=== PATIENT | female | born 1955 ===

== ENCOUNTER 2021-01-05 04:47 | Emergency (ER) | payer OTHER, MEDICARE ==
--- NOTE | 2021-01-05 05:39 | EDM.PDOC ---
ED HPI GENERAL MEDICAL PROBLEM - General Chief Complaint: Abdominal Pain Stated Complaint: ABD PAIN Time Seen by Provider: 01/05/21 04:55 Source of Information: Reports: Patient History Limitations: Reports: No Limitations - History of Present Illness INITIAL COMMENTS - FREE TEXT/NARRATIVE: Mrs. Garcia is a very pleasant 65-year-old woman who now presents to the ED stating that she developed upper abdominal pain, nausea with dry heaves, dysuria, decreased urine output, a nonproductive cough, pain when she takes a deep breath, and a cough induced by taking a deep breath, and generalized body aches this past 01/03/2021. She then developed dyspnea, anosmia, and ageusia yesterday, 01/04/2021. She states that she also had a fever of 103 degrees yesterday. The patient states that her abdominal pain is felt across her upper abdomen, and is sharp and burning in character. She states that it is constant since its onset, and she has not identified any modifiers. The patient states that she has been taking acetaminophen and ibuprofen to address her symptoms, but states that when she does so, it makes her feel like she is going to pass out. The patient states that she went to the [facility] last night, and was swabbed for RSV and influenza, but does not have to have the results. She states that she was not seen by a provider, and not examined. Here in the ED this morning, the patient is found to be hemodynamically stable, with a slight fever of 100.4 degrees. Her oxygen saturation is 92% on room air. She appears to be somewhat fatigued, although in no acute distress. Prior to Monday, the patient denies having a recent fever, chills, sore throat, ear pain, nasal or sinus congestion, cough, dyspnea, chest pain, palpitations, nausea, vomiting, constipation, diarrhea, abdominal pain, urinary symptoms, recent weight gain or weight loss, recent bloody bowel movements or black bowel movements, recent joint aches, headaches, or rashes. I reviewed the PMHx/PSHx/SocHx, which was reviewed with the patient by the RN. The patient's PCP is LULI Choi. She has not received a COVID vaccination, nor an influenza vaccination this season. Abdomen Pain Score (Numeric/FACES): 10 - Related Data Allergies Allergy/AdvReac Type Severity Reaction Status Date / Time No Known Allergies Allergy Verified 01/05/21 05:07 Home Meds: Home Meds Ondansetron [Zofran ODT] 1 tab PO Q8H PRN #10 tab.dis 01/05/21 [Rx] Potassium Chloride 2 tab PO Q6H #3 tablet.er 01/05/21 [Rx] Past Medical History HEENT History: Reports: Impaired Vision Other HEENT History: uses glasses Respiratory History: Reports: Bronchitis, Recurrent Gastrointestinal History: Reports: Chronic Constipation, Hemorrhoids HEALTHCARE SPECIALIST History: Reports: - Infectious Disease History Infectious Disease History: Reports: Chicken Pox - Past Surgical History HEENT Surgical History: Reports: Oral Surgery Social & Family History - Tobacco Use Tobacco Use Status *Q: Former Tobacco User Used Tobacco, but Quit: Yes Month/Year Tobacco Last Used: 40 years - Caffeine Use Caffeine Use: Reports: None - Recreational Drug Use Recreational Drug Use: No ED ROS GENERAL - Review of Systems Review Of Systems: Comprehensive ROS is negative, except as noted in HPI. ED EXAM, GENERAL - Physical Exam Exam: See Below Exam Limited By: No Limitations General Appearance: Alert, WD/WN, Other (Looks somewhat fatigued) Eye Exam: Bilateral Eye: EOMI, Normal Inspection Ears: Normal External Exam, Hearing Grossly Normal Nose: Normal Inspection Throat/Mouth: Normal Inspection, Normal Lips, Normal Voice, No Airway Compromise Head: Atraumatic, Normocephalic Neck: Normal Inspection, Full Range of Motion Respiratory/Chest: No Respiratory Distress, Lungs Clear, Normal Breath Sounds, No Accessory Muscle Use, Other (Having the patient take a deep breath induced a cough). No: Decreased Breath Sounds, Crackles, Rhonchi, Wheezing, Stridor, Prolonged Expiration Cardiovascular: Normal Peripheral Pulses, Regular Rate, Rhythm, No Edema, No Gallop, No JVD, No Murmur, No Rub Peripheral Pulses: 3+: Radial (L), Radial (R) GI/Abdominal: Normal Bowel Sounds, Soft, No Organomegaly, No Distention, No Abnormal Bruit, No Mass, Tender (To the upper abdomen only, nontender to the lower abdomen, including the suprapubic region) Back Exam: Normal Inspection, Full Range of Motion. No: CVA Tenderness (L), CVA Tenderness (R) Extremities: Normal Inspection, Normal Range of Motion, No Pedal Edema, Normal Capillary Refill Neurological: Alert, Oriented, Normal Cognition, No Motor/Sensory Deficits Psychiatric: Normal Affect Skin Exam: Warm, Dry, Intact, Normal Color, No Rash #1 Interpretation EKG Date: 01/05/21 Time: 05:46 Rhythm: NSR Rate (Beats/Min): 76 [place]: Normal P-Wave: Present QRS: Normal ST-T: Normal QT: Normal Comparison: NA - No Prior EKG Course - Vital Signs Last Recorded V/S: Last Vital Signs Temp 38.0 C 01/05/21 07:35 Pulse 86 01/05/21 07:35 Resp 32 H 01/05/21 07:35 BP 112/71 01/05/21 07:35 Pulse Ox 91 L 01/05/21 07:35 Orthostatic Blood Pressure [ 111/57 Standing] Orthostatic Blood Pressure [ 117/59 Supine] - Orders/Labs/Meds Orders: Active Orders 24 hr Category Date Time Status Orthostatic Vital Signs [RC] STAT Care 01/05/21 05:29 Active Vital Signs [RC] Q15M Care 01/05/21 08:09 Active BLOOD CULTURE [MREF] Stat Lab 01/05/21 05:57 Received BLOOD CULTURE [MREF] Stat Lab 01/05/21 06:05 Received EPINEPHrine [Adrenalin] Med 01/05/21 08:09 Active 0.3 mg IM ASDIRECTED PRN Famotidine [Pepcid] Med 01/05/21 08:09 Active 20 mg IVPUSH ASDIRECTED PRN Sodium Chloride 0.9% [Saline Flush] Med 01/05/21 08:15 Active 30 ml FLUSH ASDIRECTED diphenhydrAMINE [Benadryl] Med 01/05/21 08:09 Active 50 mg IVPUSH ASDIRECTED PRN methylPREDNISolone Sod Succ [Solu-MEDROL] Med 01/05/21 08:09 Active 125 mg IVPUSH ASDIRECTED PRN Blood Culture x2 Reflex Set [OM.PC] Stat Oth 01/05/21 05:30 Ordered Medication Orders Diphenhydramine HCl (Diphenhydramine 50 Mg/Ml Sdv) 50 mg IVPUSH ASDIRECTED PRN PRN Reason: hypersensitivity reaction Epinephrine HCl (Epinephrine 1 Mg/Ml Sdv) 0.3 mg IM ASDIRECTED PRN PRN Reason: hypersensitivity reaction Famotidine (Famotidine 20 Mg/2 Ml Sdv) 20 mg IVPUSH ASDIRECTED PRN PRN Reason: hypersensitivity reaction Methylprednisolone Sodium Succinate (Methylprednisolone Sodium Succinate 125 Mg/2 Ml Sdv) 125 mg IVPUSH ASDIRECTED PRN PRN Reason: hypersensitivity reaction Sodium Chloride (Sodium Chloride 0.9% 10 Ml Syringe) 30 ml FLUSH ASDIRECTED KAUR Labs: Laboratory Tests 01/05/21 01/05/21 01/05/21 Range/Units 05:28 05:46 06:05 WBC 2.33 L* (3.98-10.04) K/mm3 RBC 4.85 (3.98-5.22) M/mm3 Hgb 15.1 (11.2-15.7) gm/dl Hct 43.1 (34.1-44.9) % MCV 88.9 (79.4-94.8) fl MCH 31.1 (25.6-32.2) pg MCHC 35.0 (32.2-35.5) g/dl RDW Std Deviation 39.3 (36.4-46.3) fL Plt Count 114 L (182-369) K/mm3 MPV 10.1 (9.4-12.3) fl Neutrophils % (Manual) 62 H (40-60) % Band Neutrophils % 0 (0-10) % Lymphocytes % (Manual) 27 (20-40) % Atypical Lymphs % 0 % Monocytes % (Manual) 11 H (2-10) % Eosinophils % (Manual) 0 L (0.7-5.8) % Basophils % (Manual) 0 L (0.1-1.2) Platelet Estimate Adequate RBC Morph Comment Normal D-Dimer, Quantitative (0.19-0.50) mg/L Sodium (136-145) mEq/L Potassium (3.5-5.1) mEq/L Chloride (98-107) mEq/L Carbon Dioxide (21-32) mEq/L Anion Gap (5-15) BUN (7-18) mg/dL Creatinine (0.55-1.02) mg/dL Est Cr Clr Drug Dosing mL/min Estimated GFR (MDRD) (>60) mL/min BUN/Creatinine Ratio (14-18) Glucose (70-99) mg/dL Lactic Acid (0.4-2.0) mmol/L Calcium (8.5-10.1) mg/dL Magnesium (1.8-2.4) mg/dL Total Bilirubin (0.2-1.0) mg/dL AST (15-37) U/L ALT (14-59) U/L Alkaline Phosphatase (46-116) U/L Troponin I (0.00-0.056) ng/mL C-Reactive Protein (<1.0) mg/dL NT-Pro-B Natriuret Pep (0-125) pg/mL Total Protein (6.4-8.2) g/dl Albumin (3.4-5.0) g/dl Globulin gm/dL Albumin/Globulin Ratio (1-2) Lipase (73-393) U/L Urine Color Yellow (Yellow) Urine Appearance Clear (Clear) Urine pH 5.5 (5.0-8.0) Ur Specific [place] 1.025 (1.005-1.030) Urine Protein 2+ H (Negative) Urine Glucose (UA) Negative (Negative) Urine Ketones Trace H (Negative) Urine Occult Blood 2+ H (Negative) Urine Nitrite Negative (Negative) Urine Bilirubin Negative (Negative) Urine Urobilinogen 1.0 (0.2-1.0) Ur Leukocyte Esterase Negative (Negative) Urine RBC 5-10 H (0-5) /hpf Urine WBC 0-5 (0-5) /hpf Ur Squamous Epith Cells 0-5 (0-5) /hpf Urine Bacteria Few (FEW) /hpf Urine Mucus Moderate H (FEW) /hpf Influenza Type A RNA Cancelled Influenza Type B RNA Cancelled SARS-CoV-2 RNA (STEVEN) Positive H (NEGATIVE) 01/05/21 01/05/21 01/05/21 Range/Units 06:05 06:05 06:05 WBC (3.98-10.04) K/mm3 RBC (3.98-5.22) M/mm3 Hgb (11.2-15.7) gm/dl Hct (34.1-44.9) % MCV (79.4-94.8) fl MCH (25.6-32.2) pg MCHC (32.2-35.5) g/dl RDW Std Deviation (36.4-46.3) fL Plt Count (182-369) K/mm3 MPV (9.4-12.3) fl Neutrophils % (Manual) (40-60) % Band Neutrophils % (0-10) % Lymphocytes % (Manual) (20-40) % Atypical Lymphs % % Monocytes % (Manual) (2-10) % Eosinophils % (Manual) (0.7-5.8) % Basophils % (Manual) (0.1-1.2) Platelet Estimate RBC Morph Comment D-Dimer, Quantitative 0.82 H (0.19-0.50) mg/L Sodium 136 (136-145) mEq/L Potassium 2.7 L (3.5-5.1) mEq/L Chloride 97 L (98-107) mEq/L Carbon Dioxide 27 (21-32) mEq/L Anion Gap 14.7 (5-15) BUN 13 (7-18) mg/dL Creatinine 0.8 (0.55-1.02) mg/dL Est Cr Clr Drug Dosing 60.54 mL/min Estimated GFR (MDRD) > 60 (>60) mL/min BUN/Creatinine Ratio 16.3 (14-18) Glucose 111 H (70-99) mg/dL Lactic Acid 1.5 (0.4-2.0) mmol/L Calcium 8.3 L (8.5-10.1) mg/dL Magnesium 1.8 (1.8-2.4) mg/dL Total Bilirubin 0.6 (0.2-1.0) mg/dL AST 44 H (15-37) U/L ALT 29 (14-59) U/L Alkaline Phosphatase 51 (46-116) U/L Troponin I < 0.017 (0.00-0.056) ng/mL C-Reactive Protein 2.3 H* (<1.0) mg/dL NT-Pro-B Natriuret Pep (0-125) pg/mL Total Protein 6.4 (6.4-8.2) g/dl Albumin 3.2 L (3.4-5.0) g/dl Globulin 3.2 gm/dL Albumin/Globulin Ratio 1.0 (1-2) Lipase 200 (73-393) U/L Urine Color (Yellow) Urine Appearance (Clear) Urine pH (5.0-8.0) Ur Specific [place] (1.005-1.030) Urine Protein (Negative) Urine Glucose (UA) (Negative) Urine Ketones (Negative) Urine Occult Blood (Negative) Urine Nitrite (Negative) Urine Bilirubin (Negative) Urine Urobilinogen (0.2-1.0) Ur Leukocyte Esterase (Negative) Urine RBC (0-5) /hpf Urine WBC (0-5) /hpf Ur Squamous Epith Cells (0-5) /hpf Urine Bacteria (FEW) /hpf Urine Mucus (FEW) /hpf Influenza Type A RNA Influenza Type B RNA SARS-CoV-2 RNA (STEVEN) (NEGATIVE) 01/05/21 Range/Units 06:05 WBC (3.98-10.04) K/mm3 RBC (3.98-5.22) M/mm3 Hgb (11.2-15.7) gm/dl Hct (34.1-44.9) % MCV (79.4-94.8) fl MCH (25.6-32.2) pg MCHC (32.2-35.5) g/dl RDW Std Deviation (36.4-46.3) fL Plt Count (182-369) K/mm3 MPV (9.4-12.3) fl Neutrophils % (Manual) (40-60) % Band Neutrophils % (0-10) % Lymphocytes % (Manual) (20-40) % Atypical Lymphs % % Monocytes % (Manual) (2-10) % Eosinophils % (Manual) (0.7-5.8) % Basophils % (Manual) (0.1-1.2) Platelet Estimate RBC Morph Comment D-Dimer, Quantitative (0.19-0.50) mg/L Sodium (136-145) mEq/L Potassium (3.5-5.1) mEq/L Chloride (98-107) mEq/L Carbon Dioxide (21-32) mEq/L Anion Gap (5-15) BUN (7-18) mg/dL Creatinine (0.55-1.02) mg/dL Est Cr Clr Drug Dosing mL/min Estimated GFR (MDRD) (>60) mL/min BUN/Creatinine Ratio (14-18) Glucose (70-99) mg/dL Lactic Acid (0.4-2.0) mmol/L Calcium (8.5-10.1) mg/dL Magnesium (1.8-2.4) mg/dL Total Bilirubin (0.2-1.0) mg/dL AST (15-37) U/L ALT (14-59) U/L Alkaline Phosphatase (46-116) U/L Troponin I (0.00-0.056) ng/mL C-Reactive Protein (<1.0) mg/dL NT-Pro-B Natriuret Pep 118 (0-125) pg/mL Total Protein (6.4-8.2) g/dl Albumin (3.4-5.0) g/dl Globulin gm/dL Albumin/Globulin Ratio (1-2) Lipase (73-393) U/L Urine Color (Yellow) Urine Appearance (Clear) Urine pH (5.0-8.0) Ur Specific [place] (1.005-1.030) Urine Protein (Negative) Urine Glucose (UA) (Negative) Urine Ketones (Negative) Urine Occult Blood (Negative) Urine Nitrite (Negative) Urine Bilirubin (Negative) Urine Urobilinogen (0.2-1.0) Ur Leukocyte Esterase (Negative) Urine RBC (0-5) /hpf Urine WBC (0-5) /hpf Ur Squamous Epith Cells (0-5) /hpf Urine Bacteria (FEW) /hpf Urine Mucus (FEW) /hpf Influenza Type A RNA Influenza Type B RNA SARS-CoV-2 RNA (STEVEN) (NEGATIVE) Meds: Medications Generic Name Dose Route Start Last Admin Trade Name Freq PRN Reason Stop Dose Admin Diphenhydramine HCl 50 mg 01/05/21 08:09 Diphenhydramine 50 Mg/Ml Sdv IVPUSH ASDIRECTED PRN hypersensitivity reaction Epinephrine HCl 0.3 mg 01/05/21 08:09 Epinephrine 1 Mg/Ml Sdv IM ASDIRECTED PRN hypersensitivity reaction Famotidine 20 mg 01/05/21 08:09 Famotidine 20 Mg/2 Ml Sdv IVPUSH ASDIRECTED PRN hypersensitivity reaction Methylprednisolone Sodium Succinate 125 mg 01/05/21 08:09 Methylprednisolone Sodium Succinate 125 Mg/2 Ml Sdv IVPUSH ASDIRECTED PRN hypersensitivity reaction Sodium Chloride 30 ml 01/05/21 08:15 Sodium Chloride 0.9% 10 Ml Syringe FLUSH ASDIRECTED KAUR Discontinued Medications Generic Name Dose Route Start Last Admin Trade Name Freq PRN Reason Stop Dose Admin CASIRIVIMAB/IMDEVIMAB 10 ml/ 110 mls @ 220 mls/hr 01/05/21 08:30 01/05/21 08:37 Sodium Chloride IV 01/05/21 08:59 220 mls/hr ONETIME ONE Administration Ondansetron HCl 4 mg 01/05/21 07:49 01/05/21 07:59 Ondansetron 4 Mg Tab.Dis PO 01/05/21 07:50 4 mg ONETIME ONE Administration Potassium Chloride 40 meq 01/05/21 07:25 01/05/21 08:49 Potassium Chloride 20 Meq Tab.Er PO 01/05/21 07:26 40 meq ONETIME ONE Administration - Re-Assessments/Exams Free Text/Narrative Re-Assessment/Exam: 01/05/21 05:31 I have ordered a work-up that includes orthostatics, numerous blood tests, 2 sets of blood cultures, a urinalysis by quick-catheter, a swab for the SARS-CoV-2 virus and influenza A + B viruses, a portable chest x-ray, and an ECG. 01/05/21 06:21 The patient is not orthostatic. 01/05/21 07:24 Portable chest radiograph reviewed. The cardiac silhouette is within normal limits. No pulmonary vascular congestion. No pleural effusions seen on this AP view. Bilateral lower hazy infiltrates, consistent with COVID pneumonia. No pneumothorax. Formal read per the Radiologist pending. The patient's CBC is remarkable for leukopenia of 2.33 and thrombocytopenia of 114,000, with the remainder of her CBC being unremarkable. Her CMP is remarkable for hypokalemia of 2.7, slight hyperglycemia of 111, and an AST slightly elevated at 44, with an ALT normal at 29, and the remainder of her CMP being unremarkable. Her magnesium level is within normal limits at 1.8. Her lactic acid level is within normal limits at 1.5. Her lipase level is within normal limits at 200. Her troponin is undetectably low. Her pro-BNP is within normal limits at 118. Her D-dimer is slightly elevated at 0.82. Her CRP is modestly elevated at 2.3. Her urinalysis is remarkable for 2+ occult blood with 5-10 RBCs, leukocyte esterase negative with 0-5 WBCs, nitrate negative with few bacteria, and 0-5 squamous epithelial cells. Her swab for the SARS-CoV-2 virus is positive. For reasons unclear, her swab for influenza A + B viruses was canceled. 01/05/21 07:30 Case discussed with the pharmacist. At this time, we have a fairly good supply of monoclonal antibodies. 01/05/21 08:02 Based on the patient's age, she is a candidate for an infusion of the monoclonal antibody Regen-Cov. We discussed that at length, including that it is an emergency use authorization medication intended to decrease the likelihood of patients diagnosed with COVID-19 from developing severe symptoms or , and that it does not treat her current symptoms. I explained that Regen-Cov is still under investigation, that it is not fully FDA approved, and that the potential benefits and risks of the medication are not fully known. The patient was notified that if she receives Regen-Cov, that it may decrease her immune response to a COVID vaccination, should she decide to get it after she recovers from her current illness. I explained that there is a possibility that she could have an allergic reaction either during or after the infusion, as well as brief pain, bleeding, bruising of the skin, soreness, swelling, and possible infection at the infusion site. Other side effects could occur. I discussed that there are other potential treatment options that are currently not FDA approved to treat COVID-19. The patient was notified that the infusion takes about half an hour, after which she would be expected to remain in the ED for another hour to observe for possible side effects. She was offered the "Patient and caregiver RODDY Regen-Cov fact sheet" to read and review. All questions were answered. The patient expressed understanding, but stated that she would prefer to "pass". I will discharge her home with prescriptions for Zofran ODT and the dosages of KCl 40 mEq, that she should take about 6 hours apart, taking a Zofran about 20 to 30 minutes before the potassium, to help minimize associated nausea. She should stay adequately hydrated and take OTC ibuprofen as needed for discomfort. She was advised to strictly isolate until she tests negative. I recommended that she get retested on or about 01/15/2021. She should consider purchasing an [id number] finger pulse oximeter, and check her oxygen saturation several times a day. If her oxygen saturation drops down to about 90%, consistently, she should return to the ED for reevaluation. 01/05/21 08:08 Notified by Carrie SHEETS that the patient's is upset that the patient did not want to take the monoclonal antibodies. Apparently their daughter is a physician, and insisted that she get it. After the patient was informed of this, she changed her mind, and now agreed to receive the infusion. 01/05/21 08:[address] Rodriguez, and care of the patient turned over to him at this time, for change of shift. 01/05/21 09:12 The infusion finished without complications. She will now wait for 1 hour before being discharged home. Departure - Departure Time of Disposition: 10:10 Disposition: Home, Self-Care 01 Condition: Good Clinical Impression: COVID-19, Hypokalemia - Discharge Information *PRESCRIPTION DRUG MONITORING PROGRAM REVIEWED*: Not Applicable *COPY OF PRESCRIPTION DRUG MONITORING REPORT IN PATIENT KATIE: Not Applicable Prescriptions: Potassium Chloride 2 tab PO Q6H #3 tablet.er Ondansetron [Zofran ODT] 1 tab PO Q8H PRN #10 tab.dis PRN Reason: Nausea/Vomiting Referrals: Kevin Harper PA-C [Physician Hand [employer] Rep[employer]r [employer]per] - Forms: ED Department Discharge Additional Instructions: You were seen in the emergency room after developing abdominal pain, nausea with dry heaves, decreased urine output, difficulty urinating, a dry cough, pain with deep breaths, generalized body aches, loss of taste and smell, followed by shortness of breath. Work-up in the ER included positional blood pressure checks, numerous blood tests, 2 sets of blood cultures, a urinalysis, a swab for the SARS-CoV-2 virus, a chest x-ray, and an ECG. Your blood work found your potassium level to be modestly depressed at 2.7. You were given some oral potassium replacement in the ER. Your swab for the SARS-CoV-2 virus returned positive, indicating that you have COVID-19. The remainder of your work-up was unremarkable. You do not have a urinary tract infection. You were treated with an infusion of the monoclonal antibodies Regen-COV (Regeneron) in the ER. As discussed, this will decrease the likelihood that you will develop significant consequences of COVID-19, such as needing to be hospitalized, intubated, or . Prescriptions for the antinausea medicine Zofran ODT and potassium chloride have been sent to the [facility]. You may dissolve 1 tablet of Zofran ODT on your tongue up to every 6 hours, as needed for nausea/vomiting. Take 2 tablets (40 mEq) of potassium chloride every 6 hours, starting at 2:00 this afternoon, 01/05/2021. We recommend that you take the potassium about 20 or 30 minutes AFTER you take the Zofran, to help minimize nausea and vomiting. Stay adequately hydrated. You may take [id number] ibuprofen as needed for discomfort, however, we advise against you taking any ukly-gks-nhmflfd cough or cold remedies, as they have been shown to be of no benefit, but do have side effects, such as an upset stomach. As discussed, it is imperative that you strictly isolate until you test negative. On average, it takes 10 days to clear the virus, however, not everyone is average. For this reason, we recommend that you get retested on or about 01/15/2021. If you still test positive at that time, you need to continue to isolate until you test negative. Consider purchasing a finger pulse oximeter, and check your oxygen saturation several times a day. If your oxygen saturation drops down to 90%, consistently, you should return to the ER for reevaluation. Sepsis Event Note (ED) - Focused Exam Vital Signs: Vital Signs Temp Pulse Resp BP Pulse Ox 01/05/21 07:35 38.0 C 86 32 H 112/71 91 L 01/05/21 05:01 38.0 C 83 18 123/66 92 L - My Orders Last 24 Hours: My Active Orders 01/05/21 05:29 Orthostatic Vital Signs [RC] STAT 01/05/21 05:30 Blood Culture x2 Reflex Set [OM.PC] Stat 01/05/21 05:57 BLOOD CULTURE [MREF] Stat 01/05/21 06:05 BLOOD CULTURE [MREF] Stat 01/05/21 08:09 Vital Signs [RC] Q15M EPINEPHrine [Adrenalin] 0.3 mg IM ASDIRECTED PRN Famotidine [Pepcid] 20 mg IVPUSH ASDIRECTED PRN diphenhydrAMINE [Benadryl] 50 mg IVPUSH ASDIRECTED PRN methylPREDNISolone Sod Succ [Solu-MEDROL] 125 mg IVPUSH ASDIRECTED PRN 11/16/21 08:15 Sodium Chloride 0.9% [Saline Flush] 30 ml FLUSH ASDIRECTED - Assessment/Plan Last 24 Hours: My Active Orders 01/05/21 05:29 Orthostatic Vital Signs [RC] STAT 01/05/21 05:30 Blood Culture x2 Reflex Set [OM.PC] Stat 01/05/21 05:57 BLOOD CULTURE [MREF] Stat 01/05/21 06:05 BLOOD CULTURE [MREF] Stat 01/05/21 08:09 Vital Signs [RC] Q15M EPINEPHrine [Adrenalin] 0.3 mg IM ASDIRECTED PRN Famotidine [Pepcid] 20 mg IVPUSH ASDIRECTED PRN diphenhydrAMINE [Benadryl] 50 mg IVPUSH ASDIRECTED PRN methylPREDNISolone Sod Succ [Solu-MEDROL] 125 mg IVPUSH ASDIRECTED PRN 01/05/21 08:15 Sodium Chloride 0.9% [Saline Flush] 30 ml FLUSH ASDIRECTED
[2021-01-05] MEDS ORDERED: Potassium Chloride 20 MEQ Tab.ER PO ONE (07:25)
[2021-01-05] MEDS ORDERED: Ondansetron 4 MG Tab.DIS PO ONE (07:49)
--- NOTE | 2021-01-05 08:03 | CR ---
Chest: Portable view of the chest was obtained. Comparison: No prior chest imaging is available. Patchy areas of increased density are seen within both lungs mostly along the periphery. Please rule out COVID disease. Heart size and mediastinum are normal. Bony structures show nothing acute. Impression: 1. Slight patchy areas of increased density on both sides of the chest. Findings either represent mild multifocal pneumonia or represent COVID etiology. Diagnostic code #3
[2021-01-05] MEDS ORDERED: methylPREDNISolone Sodium Succinate 125 MG/2 ML SDV IVPUSH PRN (08:09)
[2021-01-05] MEDS ORDERED: EPINEPHrine 1 MG/ML SDV IM PRN (08:09)
[2021-01-05] MEDS ORDERED: diphenhydrAMINE 50 MG/ML SDV IVPUSH PRN (08:09)
[2021-01-05] MEDS ORDERED: Famotidine 20 MG/2 ML SDV IVPUSH PRN (08:09)
[2021-01-05] MEDS ORDERED: Sodium Chloride 0.9% 10 ML Syringe FLUSH SCH (08:15)
== END 2021-01-05 11:00 | disposition home or self-care (01) ==
LOC: JD.ED 04:47
DX: U07.1 COVID-19 (principal); E87.6 Hypokalemia; R79.82 Elevated C-reactive protein (CRP); Z87.891 Personal history of nicotine dependence
CPT/HCPCS: 36415; 71045; 80053; 81001; 83605; 83690; 83735; 83880; 84484; 85007; 85027; 85379; 86140; 87040; 87635; 87804; 93005; 99284; A9270; M0243; Q0243; 93010; U0002

== ENCOUNTER 2021-01-11 19:55 | Emergency (ER) | payer OTHER, MEDICARE ==
[2021-01-11] MEDS ORDERED: Lactated Ringers 1,000 ML IV ONE (20:38)
[2021-01-11] MEDS ORDERED: Iopamidol 755 Mg/ML 100 ML Bottle IVPUSH ONE (21:25)
[2021-01-11] MEDS ORDERED: Sodium Chloride 0.9% 100 ML IV ONE (21:25)
[2021-01-11] MEDS ORDERED: Heparin Sodium 5,000 Units/ML Vial IVPUSH ONE (21:44)
[2021-01-11] MEDS ORDERED: Heparin Sodium/D5W 25,000 UNITS/500 ML BAG IV SCH (21:45)
[2021-01-11] MEDS ORDERED: Aspirin 81 MG Tab.Chew PO ONE (21:56)
--- NOTE | 2021-01-11 21:58 | EDM.PDOC ---
ED HPI GENERAL MEDICAL PROBLEM - General Chief Complaint: Respiratory Problem Stated Complaint: [facility] Time Seen by Provider: 01/11/21 20:45 Source of Information: Reports: Patient History Limitations: Reports: No Limitations - History of Present Illness INITIAL COMMENTS - FREE TEXT/NARRATIVE: Patient is a 65-year-old female presenting to the emergency room with shortness of breath. Patient does have a history of recently testing positive for COVID- 19. She states her breathing is gradually worsened. Today, she states she had a syncopal episode. She states she has had syncopal episodes in the past. She states she was unsure how long she was out for. She denies hitting her head. Patient does report intermittent chest pain since Monday. Nothing seems to make her symptoms better or worse. Patient was seen in the emergency room previously and was tested positive for Covid. Patient previously unvaccinated against COVID-19. She denies any history of a nticoagulation, lower extremity swelling, calf pain. Otherwise, she is not on any medications. 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: - Infectious Disease History Infectious Disease History: Reports: Chicken Pox, Novel Coronavirus - Past Surgical History HEENT Surgical History: Reports: Oral Surgery Social & Family History - Tobacco Use Tobacco Use Status *Q: Never Tobacco User Second Hand Smoke Exposure: No - Caffeine Use Caffeine Use: Reports: None - Recreational Drug Use Recreational Drug Use: No ED ROS GENERAL - Review of Systems Review Of Systems: See Below Free Text/Narrative/Comment: In addition to that documented in the HPI above, the additional ROS was obtained: Constitutional: Denies fevers or chills Eyes: Denies vision changes ENMT: Denies sore throat CV: Per HPI Resp: Per HPI GI: Denies vomiting or diarrhea : Denies painful urination MSK: Denies recent trauma Skin: Denies new rashes Neuro: Denies new numbness or tingling or weakness Endocrine: Denies unexpected weight loss Heme: Denies bleeding disorders ED EXAM, GENERAL - Physical Exam Exam: See Below Free Text/Narrative:: I have reviewed the triage vital signs Const: Well nourished, well developed, appears stated age Eyes: Pupils Equal and reactive to light bilaterally, no conjunctival injection HENT: No signs of trauma or swelling, Neck supple without meningismus CV: Tachycardic with irregular rhythm, Warm, well-perfused extremities RESP: Mildly tachypneic GI: soft, non-tender, non-distended, no masses MSK: No gross deformities appreciated Skin: Warm, dry. 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 Sensation and motor function of extremities grossly intact. Psych: Appropriate mood and affect. ED RESPIRATORY PROCEDURES - Additional/Other Procedure(s) Other (Free Text) Procedure(s): Central Venous Catheter (CVC, Central Line) Placement Indication: Intravenous access and administration of vasopressors in critically ill patient A time-out was completed verifying correct patient, procedure, site, positioning, and special equipment if applicable. The patient was placed in a dependent position appropriate for central line placement based on the vein to be cannulated. The patients left groin was prepped and draped in sterile fashion. 1% Lidocaine was used to anesthetize the surrounding skin area. A triple lumen catheter was introduced into the the common femoral vein> using the Seldinger technique under ultrasound guidance>. The catheter was threaded smoothly over the guide wire and appropriate blood return was obtained. Each lumen of the catheter was evacuated of air and flushed with sterile saline. The catheter was then sutured in place to the skin and a sterile dressing applied. Perfusion to the extremity distal to the point of catheter insertion was checked and found to be adequate. Estimated Blood Loss: 15 cc The patient tolerated the procedure well and there were no complications. #1 Interpretation EKG Date: 01/11/21 Time: 21:03 Rhythm: A-Flutter Rate (Beats/Min): 131 [place]: Normal P-Wave: Absent QRS: Normal ST-T: Elevated (inferior elvation III, avf) QT: Normal Comparison: Change From Previous EKG Course - Vital Signs Last Recorded V/S: Last Vital Signs Temp Pulse Resp BP Pulse Ox 93 L 01/11/21 23:20 - Orders/Labs/Meds Orders: Active Orders 24 hr Category Date Time Status Oxygen Therapy [RC] ASDIRECTED Care 01/11/21 23:21 Active Chest PE [Ang Chest] [CT] Stat Exams 01/11/21 20:38 Taken Heparin Sodium/D5W [Heparin 25,000 Units in D5W 500 ML] Med 01/11/21 21:45 Active 25,000 units in 500 ml IV TITRATE Norepinephrine [Levophed] 4 mg Med 01/11/21 22:00 Active Dextrose 5% in Water 246 ml IV TITRATE RT Oxygen High Flow [RESPCARE] Stat Oth 01/11/21 23:22 Active Medication Orders Heparin Sodium/Dextrose (Heparin 25,000 Units In D5w 500 Ml) 25,000 units in 500 mls @ 14.805 mls/hr IV TITRATE KAUR; Protocol Last Admin: 01/11/21 22:39 Dose: 12 units/kg/hr, 14.805 mls/hr Documented by: QUINTON Cosigned by: ALBA Norepinephrine Bitartrate 4 mg (/ Dextrose/Water) 250 mls @ 7.5 mls/hr IV TITRATE KAUR; Protocol Last Titration: 01/12/21 01:40 Dose: 4 mcg/min, 15 mls/hr Documented by: Titration: 01/11/21 22:43 Dose: 0 mcg/min, 0 mls/hr Documented by: Admin: 01/11/21 22:40 Dose: 2 mcg/min, 7.5 mls/hr Documented by: QUINTON Labs: Laboratory Tests 01/11/21 01/11/21 01/11/21 Range/Units 20:55 20:55 20:55 WBC 5.99 (3.98-10.04) K/mm3 RBC 4.44 (3.98-5.22) M/mm3 Hgb 13.6 D (11.2-15.7) gm/dl Hct 40.6 (34.1-44.9) % MCV 91.4 (79.4-94.8) fl MCH 30.6 (25.6-32.2) pg MCHC 33.5 (32.2-35.5) g/dl RDW Std Deviation 40.2 (36.4-46.3) fL Plt Count 109 L (182-369) K/mm3 MPV 9.0 L (9.4-12.3) fl Neut % (Auto) 78.9 H (34.0-71.1) % Lymph % (Auto) 10.9 L (19.3-51.7) % Sunflower % (Auto) 9.5 (4.7-12.5) % Eos % (Auto) 0 L (0.7-5.8) Baso % (Auto) 0.2 (0.1-1.2) % Neut # (Auto) 4.73 (1.56-6.13) K/mm3 Lymph # (Auto) 0.65 L (1.18-3.74) K/mm3 Sunflower # (Auto) 0.57 H (0.24-0.36) K/mm3 Eos # (Auto) 0.00 L (0.04-0.36) K/mm3 Baso # (Auto) 0.01 (0.01-0.08) K/mm3 Manual Slide Review Abnormal smear PT 13.4 H (9.7-12.0) SECONDS INR 1.22 APTT (21.7-31.4) SECONDS Sodium 137 (136-145) mEq/L Potassium 3.0 L (3.5-5.1) mEq/L Chloride 100 (98-107) mEq/L Carbon Dioxide 32 (21-32) mEq/L Anion Gap 8.0 (5-15) BUN 12 (7-18) mg/dL Creatinine 1.0 (0.55-1.02) mg/dL Est Cr Clr Drug Dosing TNP Estimated GFR (MDRD) 56 (>60) mL/min BUN/Creatinine Ratio 12.0 L (14-18) Glucose 179 H (70-99) mg/dL Calcium 8.0 L (8.5-10.1) mg/dL Total Bilirubin 0.9 (0.2-1.0) mg/dL AST 105 H (15-37) U/L ALT 80 H (14-59) U/L Alkaline Phosphatase 85 (46-116) U/L Troponin I 2.103 H* (0.00-0.056) ng/mL C-Reactive Protein 20.1 H* (<1.0) mg/dL NT-Pro-B Natriuret Pep (0-125) pg/mL Total Protein 5.9 L (6.4-8.2) g/dl Albumin 2.3 L (3.4-5.0) g/dl Globulin 3.6 gm/dL Albumin/Globulin Ratio 0.6 L (1-2) 01/11/21 01/11/21 Range/Units 20:55 20:55 WBC (3.98-10.04) K/mm3 RBC (3.98-5.22) M/mm3 Hgb (11.2-15.7) gm/dl Hct (34.1-44.9) % MCV (79.4-94.8) fl MCH (25.6-32.2) pg MCHC (32.2-35.5) g/dl RDW Std Deviation (36.4-46.3) fL Plt Count (182-369) K/mm3 MPV (9.4-12.3) fl Neut % (Auto) (34.0-71.1) % Lymph % (Auto) (19.3-51.7) % Sunflower % (Auto) (4.7-12.5) % Eos % (Auto) (0.7-5.8) Baso % (Auto) (0.1-1.2) % Neut # (Auto) (1.56-6.13) K/mm3 Lymph # (Auto) (1.18-3.74) K/mm3 Sunflower # (Auto) (0.24-0.36) K/mm3 Eos # (Auto) (0.04-0.36) K/mm3 Baso # (Auto) (0.01-0.08) K/mm3 Manual Slide Review PT (9.7-12.0) SECONDS INR APTT 32.6 H (21.7-31.4) SECONDS Sodium (136-145) mEq/L Potassium (3.5-5.1) mEq/L Chloride (98-107) mEq/L Carbon Dioxide (21-32) mEq/L Anion Gap (5-15) BUN (7-18) mg/dL Creatinine (0.55-1.02) mg/dL Est Cr Clr Drug Dosing Estimated GFR (MDRD) (>60) mL/min BUN/Creatinine Ratio (14-18) Glucose (70-99) mg/dL Calcium (8.5-10.1) mg/dL Total Bilirubin (0.2-1.0) mg/dL AST (15-37) U/L ALT (14-59) U/L Alkaline Phosphatase (46-116) U/L Troponin I (0.00-0.056) ng/mL C-Reactive Protein (<1.0) mg/dL NT-Pro-B Natriuret Pep 1400 H (0-125) pg/mL Total Protein (6.4-8.2) g/dl Albumin (3.4-5.0) g/dl Globulin gm/dL Albumin/Globulin Ratio (1-2) Meds: Medications Generic Name Dose Route Start Last Admin Trade Name Brady PRN Reason Stop Dose Admin Heparin Sodium/Dextrose 25,000 units in 500 mls @ 14.805 mls/hr 01/11/21 21:45 01/11/21 22:39 Heparin 25,000 Units In D5w 500 Ml IV 12 units/kg/hr TITRATE KAUR 14.805 mls/hr Administration Protocol 12 UNITS/KG/HR Norepinephrine Bitartrate 4 mg 250 mls @ 7.5 mls/hr 01/11/21 22:00 01/12/21 01:40 / Dextrose/Water IV 4 mcg/min TITRATE KAUR 15 mls/hr Titration Protocol 2 MCG/MIN Discontinued Medications Generic Name Dose Route Start Last Admin Trade Name Brady PRN Reason Stop Dose Admin Alteplase, Recombinant Confirm 01/12/21 01:34 01/12/21 02:30 Alteplase 100 Mg Vial Administered 01/12/21 01:35 Not Given Dose 100 mg .ROUTE .STK-MED ONE Aspirin 324 mg 01/11/21 21:56 01/11/21 22:38 Aspirin 81 Mg Tab.Chew PO 01/11/21 21:57 324 mg ONETIME ONE Administration Dexamethasone 6 mg 01/11/21 23:53 01/12/21 01:44 Dexamethasone 10 Mg/Ml Sdv IVPUSH 01/11/21 23:54 6 mg ONETIME ONE Administration Heparin Sodium (Porcine) 3,800 units 01/11/21 21:44 01/11/21 22:04 Heparin Sodium 5,000 Units/Ml Vial IVPUSH 01/11/21 21:45 3,800 units .BOLUS ONE Administration Lactated Ringer's 1,000 mls @ 1,000 mls/hr 01/11/21 20:38 01/11/21 21:00 Ringers, Lactated IV 01/11/21 21:37 1,000 mls/hr .BOLUS ONE Administration Sodium Chloride 100 mls @ 4 mls/sec 01/11/21 21:25 01/11/21 22:36 Normal Saline IV 01/11/21 21:26 4 mls/sec ONETIME ONE Administration Remdesivir 200 mg/ Sodium 250 mls @ 250 mls/hr 01/11/21 23:53 01/12/21 01:51 Chloride IV 01/11/21 23:54 250 mls/hr ONETIME ONE Administration Iopamidol 100 ml 01/11/21 21:25 01/11/21 22:36 Iopamidol 755 Mg/Ml 100 Ml Bottle IVPUSH 01/11/21 21:26 100 ml ONETIME ONE Administration Ketamine HCl 60 mg 01/11/21 22:16 01/12/21 02:30 Ketamine 500 Mg/10 Ml Mdv IV 01/11/21 22:17 Not Given ONETIME ONE - Re-Assessments/Exams Free Text/Narrative Re-Assessment/Exam: 01/11/21 22:21 Spoke with [facility] cardiology in [place], Dr. Garcia. We discussed findings on EKG concerning for possible acute OK. No definitive STEMI evidence but he did recommend cardioversion. Departure - Departure Time of Disposition: 01:30 Disposition: DC/Tfer to Acute Hospital 02 Clinical Impression: Acute hypoxemic respiratory failure, COVID-19, Bilateral pulmonary embolism - Discharge Information Referrals: Kevin Harper PA-C [Primary Care Provider] - Forms: ED Department Discharge Critical Care Note - Critical Care Note Total Time (mins): 90 Comments: Critical Care Procedure Note Total critical care time: Approximately 90 minutes Due to a high probability of clinically significant, life threatening deterioration, the patient required my highest level of preparedness to intervene emergently and I personally spent this critical care time directly and personally managing the patient. This critical care time included obtaining a history; examining the patient; pulse oximetry; ordering and review of studies; arranging urgent treatment with development of a management plan; evaluation of patient's response to treatment; frequent reassessment; and, discussions with other providers. This critical care time was performed to assess and manage the high probability of imminent, life-threatening deterioration that could result in multi-organ failure. It was exclusive of separately billable procedures and treating other patients and teaching time. Sepsis Event Note (ED) - Focused Exam Vital Signs: Vital Signs Pulse Ox 01/11/21 23:20 93 L - My Orders Last 24 Hours: My Active Orders 01/11/21 20:38 Chest PE [Ang Chest] [CT] Stat 01/11/21 21:45 Heparin Sodium/D5W [Heparin 25,000 Units in D5W 500 ML] 25,000 units in 500 ml IV TITRATE 01/11/21 22:00 Norepinephrine [Levophed] 4 mg Dextrose 5% in Water 246 ml IV TITRATE 01/11/21 23:21 Oxygen Therapy [RC] ASDIRECTED 01/11/21 23:22 RT Oxygen High Flow [RESPCARE] Stat - Assessment/Plan Last 24 Hours: My Active Orders 01/11/21 20:38 Chest PE [Ang Chest] [CT] Stat 01/11/21 21:45 Heparin Sodium/D5W [Heparin 25,000 Units in D5W 500 ML] 25,000 units in 500 ml IV TITRATE 01/11/21 22:00 Norepinephrine [Levophed] 4 mg Dextrose 5% in Water 246 ml IV TITRATE 01/11/21 23:21 Oxygen Therapy [RC] ASDIRECTED 01/11/21 23:22 RT Oxygen High Flow [RESPCARE] Stat Assessment:: Patient is a 65-year-old female presenting to the emergency room with syncope, shortness of breath and hypotension. Patient ER course demonstrates initial hypoxia which is improved with nonrebreather. Patient was transitioned to high flow nasal cannula. Her hypoxia remained significantly improved she saturating in the high 90% with this. Patient's hypotension possible multiple etiologies considered including massive pulmonary embolism, acute OK, tension pneumothorax. CT scan did demonstrate extensive bilateral pulmonary embolism with small saddle embolism. There is also evidence of right heart strain on CT which is confirmed with elevated troponin and BNP. Patient did receive dexamethasone while in the emergency room for her Covid hypoxia. In addition, she was initiated on heparin infusion. I did consult cardiology patient first arrived. I spoke with Dr. Garcia regarding possible findings and acute OK with patient's initial rhythm of atrial flutter. We discussed possible cardioversion but this was deferred ultimately with patient's findings of massive pulmonary embolism. Patient did end up converting spontaneously to sinus tachycardia. I also spoke with Dr. Desir of [facility]. She did agree to accept patient. She did request initiation of vasopressors to keep patient stable which I do agree with. We discussed possibility of using thrombolytics for patient's massive PE. However, in the setting of Covid pneumonia and hypercoagulable state secondary to Covid is unclear whether benefit outweigh the risks. Ultimately, I decided to withhold thrombolytics in favor of continuing with heparin and vasopressors. Patient stabilized prior to leaving the emergency room.
[2021-01-11] MEDS ORDERED: Norepinephrine 4 MG in Dextrose 5% in Water 246 ML IV SCH ×2 (22:00)
[2021-01-11] MEDS ORDERED: Ketamine 500 mg/10 ML MDV IV ONE (22:16)
[2021-01-11] MEDS ORDERED: Dexamethasone 10 MG/ML SDV IVPUSH ONE (23:53)
[2021-01-11] MEDS ORDERED: REMDESIVIR 200 MG in Sodium Chloride 0.9% 250 ML IV ONE (23:53)
--- NOTE | 2021-01-12 06:06 | CT ---
CT chest Technique: Multiple axial sections were obtained from above the lung apices inferiorly through the lung bases. Intravenous contrast was utilized. Study has been performed as a pulmonary angiogram protocol. Comparison: Prior chest x-ray of 01/05/21. Findings: Pulmonary arteries are well opacified. Saddle thrombus is seen between the right and left main pulmonary arteries. Pulmonary emboli extending into the segmental branches on both sides as well as into the subsegmental branches mostly visualized within the lower lungs. Thoracic aorta shows no aneurysm. Mediastinum shows no adenopathy. No axillary adenopathy is noted. Minimal lymph nodes are noted within both hilar regions which are believed to represent changes from the parenchymal process. Right ventricle and right atria are more prominent in the left side compatible with right heart strain. Small portion of the visualized upper abdominal structures show nothing acute. Diffuse parenchymal densities are seen within both upper and lower lungs compatible with diffuse COVID pneumonia. Bone window settings were reviewed which show no acute osseous abnormality. Impression: 1. Diffuse pulmonary embolism with saddle thrombus between the right and left main pulmonary arteries and additional pulmonary emboli extending into the segmental branches and subsegmental branches. There is evidence of right ventricular strain. 2. Diffuse findings of bilateral COVID pneumonia. 3. No other acute finding is seen. Diagnostic code #5 I agree with preliminary report from [facility], finalized on 01/11/21, 11:53 PM CAREER AND GUIDANCE COUNSELOR, code 1
--- NOTE | 2021-01-13 15:42 | CR ---
Chest: Frontal view of the chest was obtained. Comparison: Prior chest x-ray of 01/05/[address] study of 01/11/21. Diffuse parenchymal densities are seen along the periphery of both lungs which is similar to prior chest CT but has increased from prior chest x-ray. Heart size and mediastinum are normal. No central line is seen on this exam. Contrast is noted within the collecting systems of the kidneys. Impression: 1. Stable chest x-ray from prior chest CT. 2. Contrast is noted within the collecting systems of both kidneys. 3. No central catheter is appreciated. Diagnostic code #3
== END 2021-01-12 02:25 ==
LOC: JD.ED 19:55
DX: U07.1 COVID-19 (principal); J96.01 Acute respiratory failure with hypoxia; I26.99 Other pulmonary embolism without acute cor pulmonale
CPT/HCPCS: 36415; 36556; 71275; 71275-26; 80053; 83880; 84484; 85025; 85610; 85730; 86140; 93005; 93010; 96365; 96366; 96368; 96375; 99291; 99291-25; A9270-GY; J1100; J1644; J7050; J7060; J7120; Q9967